=== PATIENT | female | born 1935 | race Caucasian/White ===

== ENCOUNTER 2016-04-15 23:12 | Emergency (ER) | payer OTHER | END 2016-04-16 00:36 | disposition home or self-care (01) | LOC: FER 23:12 | DX: M54.32 Sciatica, left side (principal); E78.5 Hyperlipidemia, unspecified; Z86.73 Personal history of transient ischemic attack (TIA), and cerebral infarction without residual deficits | CPT/HCPCS: J1030; J2270 ==

== ENCOUNTER 2020-05-14 13:18 | Emergency (ER) | payer OTHER ==
[~2020-05-14 13:18] MED LIST: AMLODIPINE BESYL5 MG PO; ASPIRIN325 MG PO; CIPRO500 MG PO; LEVOTHYROXINE50 MCG PO; LIPITOR 10MG TA10 MG PO; MACROBID100 MG PO
[2020-05-14] MEDS ORDERED: COLCHICINE0.6 MG PO (14:03)
[2020-05-14 15:21] LABS: BASOPHIL 0.5 % (0-2); EOSINOPHIL 0.4 % (0-7); HGB 14.1 g/dl (12.5-16.0); LYMPHOCYTE 25.9 % (15-48); MCH 30.2 pg (25.0-31.0); MCHC 33.6 g/dL (32.0-36.0); MCV 89.9 fL (78.0-100.0); MONOCYTE 7.9 % (0-12); MPV 12.8 fL (6.0-9.5); NEUTROPHIL 64.8 % (41-80); NRBC 0; PLT 150 K/uL (150-400); RBC 4.67 M/uL (4.20-5.40); RDW 14.4 % (11.5-14.0)
[2020-05-14 15:33] LABS: BILIRUBIN NEGATIVE (NEGATIVE); BLOOD TRACE-INTACT Ery/uL (NEGATIVE); CLARITY CLEAR (CLEAR); COLOR YELLOW (YELLOW); GLUCOSE (U) NORMAL (NORMAL); LEUKOCYTES NEGATIVE Leu/uL (NEGATIVE); NITRITE NEGATIVE (NEGATIVE); PROTEIN NEGATIVE (NEGATIVE); UROBILINOGEN 0.2 mg/dL (0.2-1.0)
[2020-05-14 15:42] LABS: INR 1.09 (0.9-1.2); PROTHROMBIN TIME 13.4 SECONDS (11.4-13.6); PTT 32.9 SECONDS (22.2-34.7)
[2020-05-14 15:50] LABS: BACTERIA TRACE
[2020-05-14 16:02] LABS: ALBUMIN 3.7 g/dL (3.4-5.0); BILIRUBIN - TOTAL 0.5 mg/dL (0.2-1.0); BUN/CREAT RATIO (CALC) 22.2 RATIO; CREATININE 0.81 mg/dL (0.51-0.95); GLOBULIN (CALCULATION) 3.4 g/dL; TOTAL PROTEIN 7.1 g/dL (6.4-8.2)
== END 2020-05-14 17:05 | disposition home or self-care (01) ==
LOC: FER 13:18
PROVIDERS: Emergency Medicine
DX: R55 Syncope and collapse (principal); S00.03XA Contusion of scalp, initial encounter; W19.XXXA Unspecified fall, initial encounter
CPT/HCPCS: 36415; 70450; 71046; 80053; 81001; 84484; 85025; 85610; 85730; 93005

== ENCOUNTER 2021-06-11 10:47 | Day surgery (SDCO) | payer OTHER ==
[~2021-06-11] VITALS: Ht 162.6 cm; Wt 69.4 kg
[~2021-06-11 10:47] MED LIST changes: +COLCHICINE0.6 MG PO
[2021-06-11 14:10] LABS: BASOPHIL 0.6 % (0-2); EOSINOPHIL 0.7 % (0-7); HCT 39.7 % (37.0-47.0); HGB 13.4 g/dl (12.5-16.0); LYMPHOCYTE 33.7 % (15-48); MCH 30.2 pg (25.0-31.0); MCHC 33.8 g/dL (32.0-36.0); MCV 89.6 fL (78.0-100.0); MPV 12.8 fL (6.0-9.5); NEUTROPHIL 54.7 % (41-80); NRBC 0; PLT 141 K/uL (150-400); RBC 4.43 M/uL (4.20-5.40); RDW 14.4 % (11.5-14.0)
[2021-06-11 14:12] LABS: BILIRUBIN NEGATIVE (NEGATIVE); BLOOD TRACE-LYSED Ery/uL (NEGATIVE); CLARITY CLEAR (CLEAR); COLOR YELLOW (YELLOW); GLUCOSE (U) NORMAL (NORMAL); LEUKOCYTES 1+ Leu/uL (NEGATIVE); NITRITE NEGATIVE (NEGATIVE); PROTEIN NEGATIVE (NEGATIVE); SPECIFIC GRAVITY <=1.005 (1.001-1.030); UROBILINOGEN 0.2 mg/dL (0.2-1.0)
[2021-06-11 15:10] LABS: ALBUMIN 3.2 g/dL (3.4-5.0); BILIRUBIN - TOTAL 0.7 mg/dL (0.2-1.0); BUN/CREAT RATIO (CALC) 14.1 RATIO; CREATININE 0.64 mg/dL (0.51-0.95); GLOBULIN (CALCULATION) 3.4 g/dL; POTASSIUM 3.9 mmol/L (3.5-5.1); TOTAL PROTEIN 6.6 g/dL (6.4-8.2)
[2021-06-11 15:11] LABS: BACTERIA TRACE
--- NOTE | 2021-06-11 18:19 | NUR ---
[facility] REPORT FROM [facility]
[2021-06-11] MEDS ORDERED: MYSOLINE50 M1 PO (18:27)
[2021-06-11] MEDS ORDERED: SYNTHROID75 MCG PO (18:28)
[2021-06-11] MEDS ORDERED: FLAREX5 ML EYEBOTH (18:29)
[2021-06-11] MEDS ORDERED: LUMIGAN5 ML EYEBOTH (18:30)
[2021-06-12 05:54] LABS: BASOPHIL 0.8 % (0-2); EOSINOPHIL 1.8 % (0-7); HCT 37.3 % (37.0-47.0); HGB 12.5 g/dl (12.5-16.0); MCHC 33.5 g/dL (32.0-36.0); MCV 89.7 fL (78.0-100.0); MONOCYTE 10.5 % (0-12); MPV 12.9 fL (6.0-9.5); NEUTROPHIL 51.4 % (41-80); NRBC 0; PLT 127 K/uL (150-400); RBC 4.16 M/uL (4.20-5.40); RDW 14.3 % (11.5-14.0); WBC 6.6 K/uL (4.0-10.5)
[2021-06-12 06:04] LABS: ALBUMIN 2.9 g/dL (3.4-5.0); BILIRUBIN - TOTAL 0.7 mg/dL (0.2-1.0); BUN/CREAT RATIO (CALC) 11.3 RATIO; CREATININE 0.71 mg/dL (0.51-0.95); GLOBULIN (CALCULATION) 3.1 g/dL; POTASSIUM 3.7 mmol/L (3.5-5.1)
== END 2021-06-12 11:15 | disposition other institution (70) ==
LOC: FER 10:47 → FTCU 16:05
PROVIDERS: Emergency Medicine; Nurse Practitioner; ADMIT Internal Medicine
DX: R55 Syncope and collapse (principal); R00.1 Bradycardia, unspecified; R51.9 Headache, unspecified; I10 Essential (primary) hypertension; E03.9 Hypothyroidism, unspecified; J45.909 Unspecified asthma, uncomplicated; Z86.73 Personal history of transient ischemic attack (TIA), and cerebral infarction without residual deficits; Z79.82 Long term (current) use of aspirin; Z79.899 Other long term (current) drug therapy; Z20.822 Contact with and (suspected) exposure to COVID-19
CPT/HCPCS: 36415; 70450; 71045; 80053; 81001; 84484; 85025; 87076; 87088; 87186; 93005; 94010; G0378; J1650; U0002